=== PATIENT | male | born 1990 | race Two or more races ===

== ENCOUNTER 2021-09-03 15:32 | Emergency (ER) | payer SELFPAY ==
[~2021-09-03] VITALS: Ht 170.2 cm; Wt 65.2 kg
[2021-09-03 15:55] VITALS: BP 132/74
[2021-09-03] MEDS ORDERED: LIDOCAINE 1% Multi-Dose 20 ML VIAL. INJ ONE (16:00)
[2021-09-03] MEDS ORDERED: HYDROcodone/APAP 5/325MG 1 TAB TABLET PO ONE (16:00)
--- NOTE | 2021-09-03 16:04 | PHYS DOC ---
Past Medical History Past Surgical History: No Surgical History Smoking Status: Never Smoker Alcohol Use: None General Adult EDM: Chief Complaint: LACERATION/AVULSION HPI: HPI: Patient is a 31 year old Croatian-speaking male presented to the ED today with penis laceration. 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 Patient denies any difficulty voiding. Review of Systems: Review of Systems: Constitutional: Denies fever or chills. [] : Denies dysuria. [] Musculoskeletal: Denies back pain or joint pain. [] Integument: Reports penis laceration Neurologic: Denies headache, focal weakness or sensory changes. [] Psychiatric: Denies depression or anxiety. [] Heart Score: C/O Chest Pain: N/A Risk Factors: Risk Factors: DM, Current or recent (<one month) smoker, HTN, HLP, family history of CAD, obesity. Risk Scores: Score 0 - 3: 2.5% MACE over next 6 weeks - Discharge Home Score 4 - 6: 20.3% MACE over next 6 weeks - Admit for Clinical Observation Score 7 - 10: 72.7% MACE over next 6 weeks - Early Invasive Strategies Current Medications: Current Medications Medications (Trade) Dose Ordered Sig/Elonardo Start Time Stop Time Status Last Admin Dose Admin Acetaminophen/ Hydrocodone Bitart (Lortab 5/325) 2 tab 1X ONCE 09/03/21 16:00 09/03/21 16:01 UNV Lidocaine HCl (Lidocaine 1% 20ml Vial) 20 ml 1X ONCE 09/03/21 16:00 09/03/21 16:01 UNV Allergies: Allergies: Allergies Coded Allergies Type Severity Reaction Last Updated Verified No Known Drug Allergies 09/03/21 No Physical Exam: PE: Constitutional: Well developed, well nourished, no acute distress, non-toxic appearance. []] Skin: Uncircumcised male penis, 2 lacerations noted on the mid penile shaft. 1 lacerations approximately 6 cm, there the laceration is approximately 3 cm the lacerations appear superficial, Dr. Palm evaluated the lacerations as well Back: No tenderness, no CVA tenderness. [] Extremities: No tenderness, no cyanosis, no clubbing, ROM intact, no edema. [] Neurologic: Alert and oriented X 3, normal motor function, normal sensory function, no focal deficits noted. [] Psychologic: Affect normal, judgement normal, mood normal. [] Current Patient Data: Vital Signs: Vital Signs Date Time Temp Pulse Resp B/P (MAP) Pulse Ox O2 Delivery O2 Flow Rate FiO2 09/03/21 15:55 98.6 79 16 132/74 (93) 97 Room Air 98.6 EKG: EKG: [] Radiology/Procedures: Radiology/Procedures: Laceration/Wound Repair Wound Location: Penis shaft Wound's Depth, Shape: horizontal Wound Length (cm): 3 cm and 6 cm Wound Explored: clean Irrigated w/ Saline (ccs): 30 Betadine Prep?: Y Anesthesia: 1% of lidocaine Volume Anesthetic (ccs): Proximately 12 cc Wound Repaired With: Ethilon 4.0 Suture Size/Type: 3 cm laceration was repaired with 6 interrupted sutures, 6 cm laceration was repaired with 12 interrupted sutures. Mupirocin was applied to the area. Wound was left open to air Course & Med Decision Making: Course & Med Decision Making Pertinent Labs and Imaging studies reviewed. (See chart for details) This is a 31-year-old male patient presenting to the ED today with penis lacerations that occurred today. Tetanus was updated. Lacerations were repaired by me as noted in procedures. Wound care instructions and return precautions provided to patient and interpreted for Julius Guillen Disclaimer: Wilmer Disclaimer: This electronic medical record was generated, in whole or in part, using a voice recognition dictation system. Departure Departure Impression: Primary Impression: Laceration of penis Qualified Codes: S31.21XA - Laceration without foreign body of penis, initial encounter Disposition: HOME / SELF CARE / HOMELESS Condition: STABLE Patient Instructions: Laceration Care, Adult, [id number] Additional Instructions: You have penis lacerations that were closed with stitches. You can shower and wash the areas in the next 24 hours, keep the areas clean and dry. Apply the provided mupirocin to the areas twice a day for 7 days. Monitor the areas for any signs of infection including but not limited to increased redness, warmth, yellow drainage from the areas and return to the ED if they occur. Please return to the ED in 7 days for stitches to be removed Scripts Hydrocodone Bit/Acetaminophen (HYDROCODONE-APAP 5-325 ) 1 Tab Tablet 1 TAB PO PRN Q6HRS PRN for PAIN, #14 TAB 0 Refills Prov: DUNG VALDEZ APRN 09/03/21 DUNG VALDEZ APRN Sep 03, 2021 16:04
[2021-09-03] MEDS ORDERED: DIPHTH,PERTUSS(ACELL),TET TOX 0.5 ML DISP.SYRIN. VAX IM ONE (16:15)
[2021-09-03] MEDS ORDERED: HYDR-2761 PO (17:30)
[2021-09-03] MEDS ORDERED: MUPIROCIN 2 % OINTMENT 22GM TUBE. TP ONE (17:30)
== END 2021-09-03 18:09 | disposition home or self-care (01) ==
LOC: ER 15:32
DX: S31.21XA Laceration without foreign body of penis, initial encounter (principal); W29.0XXA Contact with powered kitchen appliance, initial encounter; Y93.89 Activity, other specified; Y92.89 Other specified places as the place of occurrence of the external cause; Y99.8 Other external cause status
CPT/HCPCS: 12004; 90471; 90715; 99283; J3490

== ENCOUNTER 2021-09-10 15:32 | Emergency (ER) | payer SELFPAY ==
[~2021-09-10] VITALS: Ht 175.3 cm; Wt 77.9 kg
[~2021-09-10 15:32] MED LIST: HYDR-2761 PO
[2021-09-10 15:51] VITALS: BP 109/70
--- NOTE | 2021-09-10 17:06 | PHYS DOC ---
Past Medical History Past Surgical History: No Surgical History Smoking Status: Never Smoker Alcohol Use: None General Adult EDM: Chief Complaint: SUTURE/STAPLE REMOVAL HPI: HPI: Patient is a 31 year old male presenting to the ED today for suture removal from the penis, sutures have been in for 1 week Review of Systems: Review of Systems: Constitutional: Denies fever or chills. []] Integument: Visit for suture removal Neurologic: Denies headache, focal weakness or sensory changes. [] Psychiatric: Denies depression or anxiety. [] Heart Score: C/O Chest Pain: N/A Risk Factors: Risk Factors: DM, Current or recent (<one month) smoker, HTN, HLP, family history of CAD, obesity. Risk Scores: Score 0 - 3: 2.5% MACE over next 6 weeks - Discharge Home Score 4 - 6: 20.3% MACE over next 6 weeks - Admit for Clinical Observation Score 7 - 10: 72.7% MACE over next 6 weeks - Early Invasive Strategies Current Medications: Current Medications Medications (Trade) Dose Ordered Sig/Leonardo Start Time Stop Time Status Last Admin Dose Admin Mupirocin (Bactroban) 1 lee 1X ONCE 09/10/21 17:30 09/10/21 17:31 Allergies: Allergies: Allergies Coded Allergies Type Severity Reaction Last Updated Verified No Known Drug Allergies 09/03/21 No Physical Exam: PE: Constitutional: Well developed, well nourished, no acute distress, non-toxic appearance. [] Skin: W well approximated lacerations on the penis shaft. No signs of infection. Back: No tenderness, no CVA tenderness. [] Extremities: No tenderness, no cyanosis, no clubbing, ROM intact, no edema. [] Neurologic: Alert and oriented X 3, normal motor function, normal sensory function, no focal deficits noted. [] Psychologic: Affect normal, judgement normal, mood normal. [] Current Patient Data: Vital Signs: Vital Signs Date Time Temp Pulse Resp B/P (MAP) Pulse Ox O2 Delivery O2 Flow Rate FiO2 09/10/21 15:51 98.3 85 16 109/70 (83) 96 98.3 EKG: EKG: [] Radiology/Procedures: Radiology/Procedures: [] Course & Med Decision Making: Course & Med Decision Making Pertinent Labs and Imaging studies reviewed. (See chart for details) This is a 31-year-old male patient presented to the ED today for suture removal from the penis. Sutures have been in for 1 week. There is no signs of infection on the laceration site. Sutures were removed by me. He was discharged to home Wilmer Disclaimer: Wilmer Disclaimer: This electronic medical record was generated, in whole or in part, using a voice recognition dictation system. Departure Departure Impression: Primary Impression: Visit for suture removal Disposition: HOME / SELF CARE / HOMELESS Condition: STABLE Referrals: NO PCP (PCP) follow up with your doctor as needed Patient Instructions: Suture Removal Additional Instructions: We removed stitches from your penis keep the area clean and dry. Follow-up with your doctor as needed. Come back to the ED at any point symptoms worsen. DUNG VALDEZ APRN Sep 10, 2021 17:06
[2021-09-10] MEDS ORDERED: MUPIROCIN 2 % OINTMENT 22GM TUBE. TP ONE (17:30)
== END 2021-09-10 17:00 | disposition home or self-care (01) ==
LOC: ER 15:32
DX: S31.21XD Laceration without foreign body of penis, subsequent encounter (principal); X58.XXXD Exposure to other specified factors, subsequent encounter
CPT/HCPCS: 99282